=== PATIENT | male | born 1965 | race Caucasian/White ===

== ENCOUNTER 2022-07-07 18:09 | Emergency (ER) | payer OTHER ==
[2022-07-07] MEDS ORDERED: CLEOCIN HCL150 MG PO (19:41)
== END 2022-07-07 19:45 | disposition home or self-care (01) ==
LOC: ER1 18:09
DX: L03.114 Cellulitis of left upper limb (principal); I10 Essential (primary) hypertension; J44.9 Chronic obstructive pulmonary disease, unspecified; Z88.2 Allergy status to sulfonamides
CPT/HCPCS: 73090; 99283